=== PATIENT | male | born 1980 | race Caucasian/White ===

== ENCOUNTER → 2018-05-06 11:51 | Outpatient (CLI) | payer MEDICAID, SELFPAY ==
[2018-05-06 12:21] LABS: INR 1.83 (0.9-1.1); Prothrombin Time 18.5 seconds (9.4-11.8)
== END ==
PROVIDERS: Visit Provider Thoracic Surgery (Cardiothoracic Vascular Surgery)
DX: Z79.01 Long term (current) use of anticoagulants (principal); Z51.81 Encounter for therapeutic drug level monitoring
CPT/HCPCS: 36415; 85610

== ENCOUNTER 2018-05-23 12:42 | Outpatient (CLI) | payer MEDICAID, SELFPAY ==
[2018-05-23 13:43] LABS: PHA INR Fingerstick 2.4 (0.9-1.1)
== END 2018-05-23 13:48 | disposition home or self-care (01) ==
LOC: ACC 12:46
PROVIDERS: PCP Family Medicine; Visit Provider Urology
DX: Z79.01 Long term (current) use of anticoagulants (principal); Z51.81 Encounter for therapeutic drug level monitoring; Z95.2 Presence of prosthetic heart valve
CPT/HCPCS: 85610; 99211; G0463

== ENCOUNTER 2018-06-02 14:15 | Outpatient (CLI) | payer MEDICAID, SELFPAY ==
[2018-06-02 15:28] LABS: PHA INR Fingerstick 3.3 (0.9-1.1)
== END 2018-06-02 15:32 | disposition home or self-care (01) ==
LOC: ACC 14:16
PROVIDERS: PCP Family Medicine; Visit Provider Urology
DX: Z79.01 Long term (current) use of anticoagulants (principal); Z51.81 Encounter for therapeutic drug level monitoring; Z95.2 Presence of prosthetic heart valve
CPT/HCPCS: 85610; 99211; G0463

== ENCOUNTER → 2018-06-13 13:27 | Outpatient (CLI) | payer MEDICAID, SELFPAY ==
[2018-06-13 15:42] LABS: Anion Gap 10.1 mEq/L (5-15); Blood Urea Nitrogen 14 mg/dL (7-18); Calcium 8.9 mg/dL (8.5-10.1); Carbon Dioxide 31 mmol/L (21.0-32.0); Chloride 104 mmol/L (98-107); Creatinine,Serum 1.08 mg/dL (0.70-1.30); Estimated Glomerular Filt Rate 78 ml/min (>60); GFR (African American) 94 ML/MIN (>60); Glucose 92 mg/dL (74-106); Potassium 4.1 mmoL/L (3.5-5.1); Sodium 141 mmol/L (136-145)
== END ==
PROVIDERS: PCP Family Medicine; Visit Provider Internal Medicine Cardiovascular Disease
DX: Z79.01 Long term (current) use of anticoagulants (principal); Z51.81 Encounter for therapeutic drug level monitoring; Z95.2 Presence of prosthetic heart valve
CPT/HCPCS: 36415; 80048

== ENCOUNTER 2018-06-17 10:57 | Outpatient (CLI) | payer MEDICAID, SELFPAY ==
[2018-06-17 12:03] LABS: PHA INR Fingerstick 2.7 (0.9-1.1)
== END 2018-06-17 12:05 | disposition home or self-care (01) ==
LOC: ACC 10:59
PROVIDERS: PCP Family Medicine; Visit Provider Urology
DX: Z79.01 Long term (current) use of anticoagulants (principal); Z51.81 Encounter for therapeutic drug level monitoring; Z95.2 Presence of prosthetic heart valve
CPT/HCPCS: 85610; 99211; G0463

== ENCOUNTER 2018-07-15 10:21 | Outpatient (CLI) | payer MEDICAID, SELFPAY ==
[2018-07-15 15:17] LABS: PHA INR Fingerstick 2.5 (0.9-1.1)
== END 2018-07-15 15:22 | disposition home or self-care (01) ==
LOC: ACC 10:22
PROVIDERS: PCP Family Medicine; Visit Provider Urology
DX: Z51.81 Encounter for therapeutic drug level monitoring (principal); Z79.01 Long term (current) use of anticoagulants
CPT/HCPCS: 85610; 99211; G0463

== ENCOUNTER 2018-08-31 10:15 | Outpatient (CLI) | payer MEDICAID, SELFPAY ==
[2018-08-31 13:57] LABS: PHA INR Fingerstick 1.7 (0.9-1.1)
== END 2018-08-31 14:22 | disposition home or self-care (01) ==
LOC: ACC 10:20
PROVIDERS: PCP Family Medicine; Visit Provider Urology
DX: Z51.81 Encounter for therapeutic drug level monitoring (principal); Z79.01 Long term (current) use of anticoagulants; Z95.2 Presence of prosthetic heart valve
CPT/HCPCS: 85610; 99211; G0463

== ENCOUNTER 2018-09-23 11:48 | Outpatient (CLI) | payer MEDICAID, SELFPAY | END 2018-09-23 14:31 | disposition home or self-care (01) | LOC: ACC 11:50 | PROVIDERS: PCP Family Medicine; Visit Provider Internal Medicine Cardiovascular Disease | DX: Z51.81 Encounter for therapeutic drug level monitoring (principal); Z79.01 Long term (current) use of anticoagulants; Z95.2 Presence of prosthetic heart valve | CPT/HCPCS: 85610; 99211; G0463 ==

== ENCOUNTER → 2018-11-26 10:40 | Outpatient (CLI) | payer MEDICAID, SELFPAY ==
[2018-11-26 11:34] LABS: INR 1.34 (0.9-1.1); Prothrombin Time 13.7 seconds (9.4-11.8)
--- NOTE | 2018-11-26 14:07 | HMH.PHAINT ---
PATIENT INR 1.34 TODAY VIA FINGERSTICK. RECOMMENDED PATIENT TAKE 12.5 MG TODAY AND TOMORROW, THEN 7.5 MG ON MON/FRI; 10 MG ON WED/WED/WED/WED/WED. THIS IS A 2.5 MG WEEKLY DOSE INCREASE ALONG WITH EXTRA 2.5 MG X2 DOSES WELL. FOLLOW UP ON 12/07.
== END ==
PROVIDERS: Visit Provider Urology
DX: Z51.81 Encounter for therapeutic drug level monitoring (principal); Z79.01 Long term (current) use of anticoagulants
CPT/HCPCS: 36415; 85610

== ENCOUNTER 2018-12-07 10:54 | Outpatient (CLI) | payer MEDICAID, SELFPAY ==
[2018-12-07 12:05] LABS: PHA INR Fingerstick 2.2 (0.9-1.1)
== END 2018-12-07 15:15 | disposition home or self-care (01) ==
LOC: ACC 10:55
PROVIDERS: PCP Family Medicine; Visit Provider Internal Medicine
DX: Z51.81 Encounter for therapeutic drug level monitoring (principal); Z79.01 Long term (current) use of anticoagulants
CPT/HCPCS: 85610; 99211; G0463

== ENCOUNTER 2019-01-16 11:10 | Outpatient (CLI) | payer MEDICAID, SELFPAY ==
[2019-01-16 12:11] LABS: PHA INR Fingerstick 2.4 (0.9-1.1)
== END 2019-01-16 14:18 | disposition home or self-care (01) ==
LOC: ACC 11:11
PROVIDERS: PCP Family Medicine; Visit Provider Urology
DX: Z51.81 Encounter for therapeutic drug level monitoring (principal); Z79.01 Long term (current) use of anticoagulants; I71.00 Dissection of unspecified site of aorta
CPT/HCPCS: 85610; 99211; G0463

== ENCOUNTER 2019-03-03 13:37 | Outpatient (CLI) | payer MEDICAID, SELFPAY ==
[2019-03-03 15:41] LABS: PHA INR Fingerstick 2.8 (0.9-1.1)
== END 2019-03-03 15:52 | disposition home or self-care (01) ==
LOC: ACC 13:40
PROVIDERS: Urology; PCP Family Medicine; Visit Provider Internal Medicine Cardiovascular Disease
DX: Z51.81 Encounter for therapeutic drug level monitoring (principal); Z79.01 Long term (current) use of anticoagulants; Z95.2 Presence of prosthetic heart valve
CPT/HCPCS: 85610

== ENCOUNTER 2019-04-05 13:27 | Outpatient (CLI) | payer MEDICAID, SELFPAY ==
[2019-04-05 15:38] LABS: PHA INR Fingerstick 2.6 (0.9-1.1)
== END 2019-04-05 15:46 | disposition home or self-care (01) ==
LOC: ACC 13:28
PROVIDERS: PCP Family Medicine; Visit Provider Urology
DX: Z51.81 Encounter for therapeutic drug level monitoring (principal); Z79.01 Long term (current) use of anticoagulants
CPT/HCPCS: 85610; 99211; G0463

== ENCOUNTER 2019-04-18 11:27 | Outpatient (CLI) | payer MEDICAID, SELFPAY ==
[2019-04-18 15:22] LABS: PHA INR Fingerstick 2.6 (0.9-1.1)
== END 2019-04-18 15:24 | disposition home or self-care (01) ==
LOC: ACC 11:29
PROVIDERS: PCP Family Medicine; Visit Provider Internal Medicine Cardiovascular Disease
DX: Z51.81 Encounter for therapeutic drug level monitoring (principal); Z79.01 Long term (current) use of anticoagulants; Z95.2 Presence of prosthetic heart valve
CPT/HCPCS: 85610; 99211; G0463